=== PATIENT | male | born 1975 | race Caucasian/White ===

== ENCOUNTER 2016-10-18 12:38 | Emergency (ER) | payer SELFPAY ==
[~2016-10-18] VITALS: Ht 175.3 cm; Wt 108.2 kg
[~2016-10-18 12:38] MED LIST: IBUP-1547 PO; [UNRECOGNIZED DRUG - REMARK]
--- OUTSIDE RECORDS SUMMARY | 2016-10-18 12:41 | XMS REPORT | Continuity of Care Document ---
Author Author [facility] Organization [facility] Address Unknown Phone Unavailable Support Name Relationship Address Phone AMARILYS CORRIGAN MD Caregiver [address] [place] [address] [place] [phone] JOHNNY DYKES Next Of Kin [address] [place] [address] Insurance Providers Payer Name Policy Number Subscriber Name Relationship Self Pay Winsome Sharpe 19 Self Problems Medical Problems Problem Onset Date Status Sternum and Rib Pain Unknown Active RIGHT RIB PAIN Unknown Active Pain due to dental caries Unknown Active Dental abscess Unknown Active Pain due to dental caries Unknown Active Sinusitis Unknown Active Sinusitis Unknown Active Chest pain Unknown Active Chest pain Unknown Active Medications Medication Dose Route Sig Days/Qty Instructions Order Date Discontinued Date Status [None] 12/16/09 10/02/11 Discontinued Miscellaneous Information 03/20/12 06/03/13 Discontinued Amoxicillin Trihydrate 500 Mg PO TWICE A DAY 03/24/13 06/03/13 Discontinued Social History Social History Problem Response Recorded Date/Time Hx Substance Use No 08/18/2014 9:00am Hx Alcohol Use No 08/18/2014 9:00am Tobacco Usage smoke 04/08/2014 12:55pm Query Response Start Date Stop Date Smoking Status Heavy Smoker Hospital Discharge Instructions No hospital discharge instructions. Plan of Care No plan of care. Functional Status Query Response Date Recorded Physical Hygiene Self August 18, 2014 9:00am Disabilities None August 18, 2014 9:00am Devices Used None August 18, 2014 9:00am Dressing Self August 18, 2014 9:00am Ambulation Self August 18, 2014 9:00am Diet Self August 18, 2014 9:00am Mental Status Alert August 18, 2014 9:49am Disabilities None August 18, 2014 9:00am Devices Used None August 18, 2014 9:00am Physical Hygiene Self August 18, 2014 9:00am Dressing Self August 18, 2014 9:00am Ambulation Self August 18, 2014 9:00am Diet Self August 18, 2014 9:00am Allergies, Adverse Reactions, Alerts Allergen Type Severity Reaction Status Last Updated Erythromycin base Allergy Unknown Active 08/18/14 Immunizations Name Given Type Hx Influenza Vaccination No Historical Hx Influenza Vaccination No Historical Vital Signs Acute Vital Signs Vital Response Date/Time Temperature (Fahrenheit) 97.1 deg F (96.8 - 99.1) Temperature (Calculated Celsius) 36.54593 degrees C (36.0 - 37.3) Pulse Rate (adult) 71 bpm (60 - 100) Respiratory Rate 18 breaths/min (10 - 20) O2 Sat by Pulse Oximetry 99 % (90 - 100) Blood Pressure 135/79 mm Hg Height 5 ft 9 in Weight 245 lb Body Mass Index 36.0 kg/m^2 Results Test Source Date Result Interp. Ref. Range Comments Activated Partial Thromboplast Time August 18, 2014 8:50am 31.4 SEC N 24-36 Ordering r/o VTE Yes Alanine Aminotransferase (ALT/SGPT) August 18, 2014 8:50am 33 U/L N 21- 72 Albumin August 18, 2014 8:50am 4.3 G/DL N 3.5-5.0 Albumin/Globulin Ratio August 18, 2014 8:50am 1.3 RATIO N 1.1-2.2 Alkaline Phosphatase August 18, 2014 8:50am 54 U/L N 38-126 Amylase Level April 21, 2010 8:40am < 30 U/L L 30-110 Anion Gap August 18, 2014 8:50am 9 MEQ/L N 5-15 Aspartate Amino Transf (AST/SGOT) August 18, 2014 8:50am 26 U/L N 17- 59 B-Type Natriuretic Peptide December 16, 2009 12:05pm 34 PG/ML N 15-100 BUN/Creatinine Ratio August 18, 2014 8:50am 24 RATIO N 6-26 Basophils # (Auto) August 18, 2014 8:50am 0.0 T/MM3 N 0-0.2 Basophils (%) (Auto) August 18, 2014 8:50am 0.3 % N 0-2 Blood Urea Nitrogen August 18, 2014 8:50am 19.0 MG/DL N 9-20 Calcium Level August 18, 2014 8:50am 8.8 MG/DL N 8.4-10.2 Calculated Osmolality August 18, 2014 8:50am 271 MOSM/KG N 261-280 Carbon Dioxide Level August 18, 2014 8:50am 26 MEQ/L N 22-30 Chemistry Specimen Hemolysis August 18, 2014 8:50am 59 H 0-25 0-25: No Hemolysis.26-70: Slight Hemolysis - can falsely elevate K and Urine Protein. 71-285: Moderate Hemolysis - can falsely elevate K, Troponin I, CA 19-9, PTH, CSF GLucose, and Urine Protein, and can falsely decrease Phenytoin. 286-999: Gross Hemolysis - can falsely elevate K, Troponin I, CA 19-9, PTH, CSF Glucose, and Urine Protine, and can falsely decrease Phenytoin. Recommend specimen recollection. Chloride Level August 18, 2014 8:50am 105 MEQ/L N 98-107 Cholesterol Level December 25, 2007 3:50pm 169 MG/DL N 120-200 Cholesterol/HDL Ratio December 25, 2007 3:50pm 2.0 RATIO N 0-5.0 Conjugated Bilirubin August 12, 2012 1:15pm 0.00 MG/DL N 0.00-0.30 Creatinine August 18, 2014 8:50am 0.8 MG/DL N 0.8-1.5 D-Dimer August 18, 2014 8:50am < 150 NG/ML 0-230 <230 NG/ML D-DU= PRESUMPTIVE NEGATIVE FOR PE OR DVT>230 NG/ML D-DU=ADDITIONAL EVAL FOR PE OR DVT RECOMMENDED Eosinophils # (Auto) August 18, 2014 8:50am 0.2 T/MM3 N 0-0.5 Eosinophils (%) (Auto) August 18, 2014 8:50am 2.2 % N 0-4 Globulin August 18, 2014 8:50am 3.2 G/DL N 2.4-3.6 Glomerular Filtration Rate Calc August 18, 2014 8:50am 109 - Glucose Level August 18, 2014 8:50am 90 MG/DL N 75-110 HDL Cholesterol Direct December 25, 2007 3:50pm 72 MG/DL H 40-60 Hematocrit August 18, 2014 8:50am 44.5 % N 41-53 Hemoglobin August 18, 2014 8:50am 15.0 GM/DL N 13.5-17.5 Icterus Index August 18, 2014 8:50am < 2 0-7 Immature Granulocyte # (Auto) August 18, 2014 8:50am 0.01 T/MM3 N 0.00- 0.03 Immature Granulocyte % (Auto) August 18, 2014 8:50am 0.1 % N 0.0-0.5 LDL Cholesterol, Calculated December 25, 2007 3:50pm 77.26925 - Lipase August 12, 2012 1:15pm 36 U/L N 23-300 Lymphocytes # (Auto) August 18, 2014 8:50am 1.7 T/MM3 N 1-4.8 Lymphocytes # (Manual) July 19, 2009 6:00pm 2.7 T/MM3 N 1-4.8 Lymphocytes % (Manual) July 19, 2009 6:00pm 30.0 % N 23-45 Lymphocytes (%) (Auto) August 18, 2014 8:50am 22.4 % L 23-45 Magnesium Level August 18, 2014 8:50am 2.0 MG/DL N 1.6-2.3 Mean Corpuscular Hemoglobin August 18, 2014 8:50am 31.9 UUG N 26-34 Mean Corpuscular Hemoglobin Concent August 18, 2014 8:50am 33.7 GM/DL N 31-37 Mean Corpuscular Volume August 18, 2014 8:50am 94.7 UM3 N 80-100 Mean Platelet Volume August 18, 2014 8:50am 10.6 UM3 N 9.4-12.4 Monocytes # (Auto) August 18, 2014 8:50am 0.6 T/MM3 N 0-0.8 Monocytes # (Manual) July 19, 2009 6:00pm 0.6 T/MM3 N 0-0.8 Monocytes % (Manual) July 19, 2009 6:00pm 7.0 % N 0-9.0 Monocytes (%) (Auto) August 18, 2014 8:50am 7.7 % N 0-9.0 NT-Gaz-Y-Type Natriuretic Peptide August 18, 2014 8:50am 69 PG/ML N 0- 175 Rule in cut points: <50 years old=450; 50-75 years old=900; >75 years old=1800; When utilizing ProBNP rule-in cut points, adjustment for impaired renal function is typically not required. Neutrophils # (Auto) August 18, 2014 8:50am 5.0 T/MM3 N 1.8-7.7 Neutrophils # (Manual) July 19, 2009 6:00pm 5.6 T/MM3 N 1.8-7.7 Neutrophils % (Manual) July 19, 2009 6:00pm 63.0 % N 33-66 Neutrophils (%) (Auto) August 18, 2014 8:50am 67.3 % H 33-66 Platelet Count August 18, 2014 8:50am 178 T/MM3 N 130-400 Potassium Level August 18, 2014 8:50am 4.2 MEQ/L N 3.6-5 Prothromb Time International Ratio August 18, 2014 8:50am 0.97 N 0.81- 1.09 THERAPUTIC RANGE=2.00-3.00 FOR ANTI-THROMBOSIS THERAPUTIC RANGE=2.50- 3.50 FOR IMPLANTED VALVE RDW Standard Deviation August 18, 2014 8:50am 41.9 FL N 36.9-50.2 Red Blood Count August 18, 2014 8:50am 4.70 M/MM3 N 4.50-5.90 Sodium Level August 18, 2014 8:50am 140 MEQ/L N 134-144 Tests Not Done July 19, 2009 5:36pm Not done - Has specimen been collected/obtained? Y Thyroid Stimulating Hormone (TSH) December 25, 2007 3:50pm 1.66 MIU/ML N 0.47 -4.68 Total Bilirubin August 18, 2014 8:50am 0.50 MG/DL N 0.20-1.30 Total Protein August 18, 2014 8:50am 7.5 G/DL N 6.3-8.2 Triglycerides Level December 25, 2007 3:50pm 139 MG/DL N 0-150 Troponin I August 18, 2014 8:50am 0.015 ng/ml N 0-0.12 Turbidity August 18, 2014 8:50am < 20 0-20 Unconjugated Bilirubin August 12, 2012 1:15pm 0.10 MG/DL N 0.00-1.10 Urinalysis Comment August 18, 2014 9:42am Microscopic not ind. - Has specimen been collected/obtained? Y Urine Amorphous Urates April 21, 2010 8:55am Few - Has specimen been collected/obtained? Y Urine Bilirubin August 18, 2014 9:42am Negative - Has specimen been collected/obtained? Y Urine Blood August 18, 2014 9:42am Negative - Has specimen been collected/obtained? Y Urine Collection Type August 18, 2014 9:42am Cleancatch-midstream - Has specimen been collected/obtained? Y Urine Color August 18, 2014 9:42am Yellow - Has specimen been collected/obtained? Y Urine Glucose (UA) August 18, 2014 9:42am Negative - Has specimen been collected/obtained? Y Urine Ketones August 18, 2014 9:42am Negative - Has specimen been collected/obtained? Y Urine Leukocyte Esterase August 18, 2014 9:42am Negative - Has specimen been collected/obtained? Y Urine Nitrite August 18, 2014 9:42am Negative - Has specimen been collected/obtained? Y Urine Protein August 18, 2014 9:42am Negative - Has specimen been collected/obtained? Y Urine RBC April 21, 2010 8:55am 0-1 /HPF - Has specimen been collected/obtained? Y Urine Specific [place] August 18, 2014 9:42am 1.020 - Has specimen been collected/obtained? Y Urine Squamous Epithelial Cells April 21, 2010 8:55am Few - Has specimen been collected/obtained? Y Urine Turbidity August 18, 2014 9:42am Clear - Has specimen been collected/obtained? Y Urine Urobilinogen August 18, 2014 9:42am 0.2 EU/DL - Has specimen been collected/obtained? Y Urine WBC April 21, 2010 8:55am 0-1 /HPF - Has specimen been collected/obtained? Y Urine pH August 18, 2014 9:42am 7.0 - Has specimen been collected/ obtained? Y VLDL Cholesterol December 25, 2007 3:50pm < 20 MG/DL 0-28 White Blood Count August 18, 2014 8:50am 7.4 T/MM3 N 4.5-11.0 Name: WINSOME SHARPE Unit #: [id number] : 1975 Sex: M Loc / Svc: ED DOS: 08/18/14 Signed Report #: [id number] DIAGNOSTIC IMAGING REPORT TYPE OF EXAM: CHEST 1 VIEW Dictated By: OSMAN OLIVO MD INDICATION: ITS.REASON: chest pain CHEST 1 VIEW: Comparison: August 14, 2013 FINDINGS: The lungs are clear. There is no abnormal airspace opacity, pleural effusion or pneumothorax identified. The heart size, pulmonary vasculature and mediastinum are within normal limits. No significant skeletal abnormality is seen. IMPRESSION: No acute cardiopulmonary abnormality. . Procedures No known history of procedures. Encounters Encounter Location Date/Time Registered Emergency Room [facility] 08/18/14 8:39am Recent Diagnosis
--- OUTSIDE RECORDS SUMMARY | 2016-10-18 12:41 | XMS REPORT | Continuity of Care Document ---
Author Author [facility] Organization [facility] Address Unknown Phone Unavailable Support Name Relationship Address Phone KARTHIK VAZQUEZ DO Caregiver [facility] [address] [place] [phone] ANT HARPER MD Caregiver [address] [place] [address] JOHNNY DYKES Next Of Kin [address] [place] [address] Insurance Providers Payer Name Policy Number Subscriber Name Relationship Self Pay Winsome Sharpe 19 Self Advance Directives Directive Response Recorded Date/Time Advanced Directives Type None 04/01/14 11:45pm Problems Medical Problems Problem Onset Date Status Sternum and Rib Pain Unknown Active RIGHT RIB PAIN Unknown Active Pain due to dental caries Unknown Active Dental abscess Unknown Active Pain due to dental caries Unknown Active Sinusitis Unknown Active Sinusitis Unknown Active Medications Medication Dose Route Sig Days/Qty Instructions Order Date Discontinued Date Status [None] 12/16/09 10/02/11 Discontinued Miscellaneous Information 03/20/12 06/03/13 Discontinued Amoxicillin Trihydrate 500 Mg PO TWICE A DAY 03/24/13 06/03/13 Discontinued Hydrocodone Bit/Acetaminophen 1 Tab PO EVERY 4 HOURS For PAIN 20 Qty Active Amoxicillin Trihydrate 500 Mg PO THREE TIMES A DAY 30 Qty 12/10/13 Active Amoxicillin 1 Tab PO THREE TIMES A DAY 30 Qty 04/02/14 Active Social History Social History Problem Response Recorded Date/Time Smoking Status Heavy Smoker 12/10/2013 11:55am Hx Substance Use No 04/01/2014 11:45pm Hx Alcohol Use No 04/01/2014 11:45pm Query Response Start Date Stop Date Smoking Status Current every day smoker Hospital Discharge Instructions No hospital discharge instructions. Plan of Care No plan of care. Functional Status Query Response Date Recorded Physical Hygiene Self April 01, 2014 11:45pm Disabilities None April 01, 2014 11:45pm Devices Used None April 01, 2014 11:45pm Dressing Self April 01, 2014 11:45pm Ambulation Self April 01, 2014 11:45pm Diet Self April 01, 2014 11:45pm Mental Status Alert Oriented April 02, 2014 12:20am Disabilities None April 01, 2014 11:45pm Devices Used None April 01, 2014 11:45pm Physical Hygiene Self April 01, 2014 11:45pm Dressing Self April 01, 2014 11:45pm Ambulation Self April 01, 2014 11:45pm Diet Self April 01, 2014 11:45pm Allergies, Adverse Reactions, Alerts Allergen Type Severity Reaction Status Last Updated Erythromycin base Allergy Unknown Active 04/01/14 Immunizations Name Given Type Hx Influenza Vaccination No Historical Hx Influenza Vaccination No Historical Vital Signs Acute Vital Signs Vital Response Date/Time Temperature (Fahrenheit) 97.2 deg F (96.8 - 99.1) Temperature (Calculated Celsius) 36.88382 degrees C (36.0 - 37.3) Pulse Rate (adult) 76 bpm (60 - 100) Respiratory Rate 16 breaths/min (10 - 20) O2 Sat by Pulse Oximetry 98 % (90 - 100) Blood Pressure 133/79 mm Hg Height 5 ft 9 in Weight 247 lb Body Mass Index 36.0 kg/m^2 Results Test Source Date Result Interp. Ref. Range Comments Activated Partial Thromboplast Time December 16, 2009 12:05pm 28.0 SEC N 24- 36 Alanine Aminotransferase (ALT/SGPT) March 24, 2013 9:23am 30 U/L N 21- 72 Albumin March 24, 2013 9:23am 4.0 G/DL N 3.5-5.0 Albumin/Globulin Ratio March 24, 2013 9:23am 1.5 RATIO N 1.1-2.2 Alkaline Phosphatase March 24, 2013 9:23am 63 U/L N 38-126 Amylase Level April 21, 2010 8:40am < 30 U/L L 30-110 Anion Gap March 24, 2013 9:23am 9 MEQ/L N 5-15 Aspartate Amino Transf (AST/SGOT) March 24, 2013 9:23am 21 U/L N 17-59 B-Type Natriuretic Peptide December 16, 2009 12:05pm 34 PG/ML N 15-100 BUN/Creatinine Ratio March 24, 2013 9:23am 23 RATIO N 6-26 Basophils # (Auto) March 24, 2013 9:23am 0.0 T/MM3 N 0-0.2 Basophils (%) (Auto) March 24, 2013 9:23am 0.2 % N 0-2 Blood Urea Nitrogen March 24, 2013 9:23am 18.0 MG/DL N 9-20 Calcium Level March 24, 2013 9:23am 8.6 MG/DL N 8.4-10.2 Calculated Osmolality March 24, 2013 9:23am 276 MOSM/KG N 261-280 Carbon Dioxide Level March 24, 2013 9:23am 30 MEQ/L N 22-30 Chloride Level March 24, 2013 9:23am 103 MEQ/L N 98-107 Cholesterol Level December 25, 2007 3:50pm 169 MG/DL N 120-200 Cholesterol/HDL Ratio December 25, 2007 3:50pm 2.0 RATIO N 0-5.0 Conjugated Bilirubin August 12, 2012 1:15pm 0.00 MG/DL N 0.00-0.30 Creatinine March 24, 2013 9:23am 0.8 MG/DL N 0.8-1.5 Eosinophils # (Auto) March 24, 2013 9:23am 0.2 T/MM3 N 0-0.5 Eosinophils (%) (Auto) March 24, 2013 9:23am 2.9 % N 0-4 Globulin March 24, 2013 9:23am 2.7 G/DL N 2.4-3.6 Glucose Level March 24, 2013 9:23am 118 MG/DL H 75-110 Hematocrit March 24, 2013 9:23am 42.0 % N 41-53 Hemoglobin March 24, 2013 9:23am 14.3 GM/DL N 13.5-17.5 LDL Cholesterol, Calculated December 25, 2007 3:50pm 77.15392 - Lipase August 12, 2012 1:15pm 36 U/L N 23-300 Lymphocytes # (Auto) March 24, 2013 9:23am 1.5 T/MM3 N 1-4.8 Lymphocytes # (Manual) July 19, 2009 6:00pm 2.7 T/MM3 N 1-4.8 Lymphocytes % (Manual) July 19, 2009 6:00pm 30.0 % N 23-45 Lymphocytes (%) (Auto) March 24, 2013 9:23am 23.6 % N 23-45 Mean Corpuscular Hemoglobin March 24, 2013 9:23am 32.3 UUG N 26-34 Mean Corpuscular Hemoglobin Concent March 24, 2013 9:23am 34.0 GM/DL N 31-37 Mean Corpuscular Volume March 24, 2013 9:23am 94.8 UM3 N 80-100 Mean Platelet Volume March 24, 2013 9:23am 10.5 UM3 N 9.4-12.4 Monocytes # (Auto) March 24, 2013 9:23am 0.4 T/MM3 N 0-0.8 Monocytes # (Manual) July 19, 2009 6:00pm 0.6 T/MM3 N 0-0.8 Monocytes % (Manual) July 19, 2009 6:00pm 7.0 % N 0-9.0 Monocytes (%) (Auto) March 24, 2013 9:23am 6.6 % N 0-9.0 Neutrophils # (Auto) March 24, 2013 9:23am 4.3 T/MM3 N 1.8-7.7 Neutrophils # (Manual) July 19, 2009 6:00pm 5.6 T/MM3 N 1.8-7.7 Neutrophils % (Manual) July 19, 2009 6:00pm 63.0 % N 33-66 Neutrophils (%) (Auto) March 24, 2013 9:23am 66.5 % H 33-66 Platelet Count March 24, 2013 9:23am 169 T/MM3 N 130-400 Potassium Level March 24, 2013 9:23am 4.0 MEQ/L N 3.6-5 Prothromb Time International Ratio December 16, 2009 12:05pm 1.07 N 0.88- 1.13 THERAPUTIC RANGE=2.00-3.00 FOR ANTI-THROMBOSIS THERAPUTIC RANGE=2.50- 3.50 FOR IMPLANTED VALVE RDW Standard Deviation March 24, 2013 9:23am 41.6 FL N 36.9-50.2 Red Blood Count March 24, 2013 9:23am 4.43 M/MM3 L 4.50-5.90 Sodium Level March 24, 2013 9:23am 142 MEQ/L N 134-144 Tests Not Done July 19, 2009 5:36pm Not done - Has specimen been collected/obtained? Y Thyroid Stimulating Hormone (TSH) December 25, 2007 3:50pm 1.66 MIU/ML N 0.47 -4.68 Total Bilirubin March 24, 2013 9:23am 0.50 MG/DL N 0.20-1.30 Total Protein March 24, 2013 9:23am 6.7 G/DL N 6.3-8.2 Triglycerides Level December 25, 2007 3:50pm 139 MG/DL N 0-150 Troponin I March 24, 2013 9:23am < 0.012 ng/ml 0-0.12 Unconjugated Bilirubin August 12, 2012 1:15pm 0.10 MG/DL N 0.00-1.10 Urine Amorphous Urates April 21, 2010 8:55am Few - Has specimen been collected/obtained? Y Urine Bilirubin August 12, 2012 12:59pm Negative - Has specimen been collected/obtained? Y Urine Blood August 12, 2012 12:59pm Negative - Has specimen been collected/obtained? Y Urine Collection Type August 12, 2012 12:59pm Voided - Has specimen been collected/obtained? Y Urine Color August 12, 2012 12:59pm Yellow - Has specimen been collected/obtained? Y Urine Glucose (UA) August 12, 2012 12:59pm Negative - Has specimen been collected/obtained? Y Urine Ketones August 12, 2012 12:59pm Negative - Has specimen been collected/obtained? Y Urine Leukocyte Esterase August 12, 2012 12:59pm Negative - Has specimen been collected/obtained? Y Urine Nitrite August 12, 2012 12:59pm Negative - Has specimen been collected/obtained? Y Urine Protein August 12, 2012 12:59pm Negative - Has specimen been collected/obtained? Y Urine RBC April 21, 2010 8:55am 0-1 /HPF - Has specimen been collected/obtained? Y Urine Specific [place] August 12, 2012 12:59pm 1.015 - Has specimen been collected/obtained? Y Urine Squamous Epithelial Cells April 21, 2010 8:55am Few - Has specimen been collected/obtained? Y Urine Turbidity August 12, 2012 12:59pm Clear - Has specimen been collected/obtained? Y Urine Urobilinogen August 12, 2012 12:59pm Normal EU/DL - Has specimen been collected/obtained? Y Urine WBC April 21, 2010 8:55am 0-1 /HPF - Has specimen been collected/obtained? Y Urine pH August 12, 2012 12:59pm 7.0 - Has specimen been collected/ obtained? Y VLDL Cholesterol December 25, 2007 3:50pm < 20 MG/DL 0-28 White Blood Count March 24, 2013 9:23am 6.5 T/MM3 N 4.5-11.0 Urinalysis Comment August 12, 2012 12:59pm Microscopic not ind. - Has specimen been collected/obtained? Y HDL Cholesterol Direct December 25, 2007 3:50pm 72 MG/DL H 40-60 Glomerular Filtration Rate Calc March 24, 2013 9:23am 109 - Immature Granulocyte # (Auto) March 24, 2013 9:23am 0.01 T/MM3 N 0.00- 0.03 Immature Granulocyte % (Auto) March 24, 2013 9:23am 0.2 % N 0.0-0.5 Procedures No known history of procedures. Encounters Encounter Location Date/Time Departed Emergency Room [facility] 04/01/14 10:27pm Recent Diagnosis
--- OUTSIDE RECORDS SUMMARY | 2016-10-18 12:41 | XMS REPORT | Continuity of Care Document ---
Author Author [facility] Organization [facility] Address Unknown Phone Unavailable Support Name Relationship Address Phone KARTHIK VAZQUEZ DO Caregiver [address] [place] [address] Unavailable JOHNNY DYKES Next Of Kin [address] [phone] Insurance Providers Guarantor Winsome Sharpe Address [address] [place] [address] Email [id number] Payer Self Pay Subscriber's Name Winsome Sharpe Relationship 18 Self Advance Directives Directive Response Recorded Date/Time Advanced Directives Type None 08/21/16 10:15am Chief Complaint and Reason for Visit Chief Complaint Lower Extremity Pain Reason for Visit Left ankle pain Left foot pain Problems Active Problems Medical Problem Onset Date Status Back pain Unknown Chronic Cellulitis of foot, right Unknown Acute Chest pain Unknown Acute Chest pain Unknown Acute Dental abscess Unknown Acute GERD (gastroesophageal reflux disease) Unknown Acute Gastritis and duodenitis Unknown Acute Influenza B Unknown Acute Left ankle pain Unknown Acute Left foot pain Unknown Acute Pain due to dental caries Unknown Acute Pain due to dental caries Unknown Acute Puncture wound of foot, right Unknown Acute RIGHT RIB PAIN Unknown Acute Sinusitis Unknown Acute Sinusitis Unknown Acute Sprain of low back Unknown Acute Sternum and Rib Pain Unknown Acute Tetanus toxoid vaccination administered at current visit Unknown Acute West Nile fever meningitis ~2006 Past Problems Medical Problem Onset Date Inguinal hernia of left side without obstruction or gangrene Unknown Left inguinal hernia Unknown Patient left without being seen Unknown Medications Current Home Medications Medication Dose Units Route Directions Days Qty Instructions Start Date Ibuprofen 800 Mg Tablet 1 Tab Oral Every 6 Hours as needed for Pain 30 Tablet 08/21/16 No Home Medications. 08/21/16 Past Home Medications Medication Directions Ordered Status Amoxicillin Trihydrate (Amoxicillin) 500 Mg Capsule, 500 Mg Oral Twice A Day 03/24/13 Discontinued Miscellaneous Information (No Known Medications) Misc, 03/20/12 Discontinued None , 12/16/09 Discontinued Social History Social History Problem Response Recorded Date/Time Onset Date Status Chewing Tobacco Status No 08/21/2016 10:19am Not Applicable Not Applicable Hx Substance Use No 08/21/2016 10:19am Not Applicable Not Applicable Hx Alcohol Use Y OCCASIONAL 08/21/2016 10:19am Not Applicable Not Applicable Tobacco Usage smoke 04/08/2014 12:55pm Not Applicable Not Applicable Query Response Start Date Stop Date Smoking Status Heavy Smoker Hospital Discharge Instructions No hospital discharge instructions. Plan of Care Discharge Date 08/21/16 11:30am Disposition 01 DISCHARGED HOME, SELF-CARE Condition at Discharge Stable Instructions/Education Provided Leg Pain (ED) Forms Provided Return to Work/School Permit Prescriptions See Medication Section Referrals [facility] Note: 1-2 days for follow up Care Plan and Goals Physician Care Plan Problem: 1. Left ankle and foot pain Goal: 1. Follow up with primary care provider in 1-2 days 2. Motrin or Tylenol for pain 3. Return to the ER as needed Instructions: 1. Take medications and follow care plan as discussed/written Functional Status No functional status results. Allergies, Adverse Reactions, Alerts Allergen Type Severity Reaction Status Last Updated Erythromycin base Allergy Unknown Active 08/21/16 Immunizations Query Response on File Recorded Date/Time Hx Influenza Vaccination No 08/18/14 9:00am Hx Influenza Vaccination No 08/18/14 9:00am Influenza Vaccine Hx NO 08/21/16 10:19am Tetanus Diptheria Vaccine History UNKNOWN 08/21/16 10:19am Tdap Vaccine Hx UNKNOWN - SKIN INTACT 08/17/16 9:50am Vital Signs Acute Vital Signs Vital Response Date/Time Temperature (Fahrenheit) 98.2 deg F (96.8 - 99.1) 08/21/2016 10:15am Temperature (Calculated Celsius) 36.03881 degrees C (36.0 - 37.3) 08/21/2016 10:15am Pulse Rate (adult) 72 bpm (60 - 100) 08/21/2016 11:31am Respiratory Rate 16 breaths/min (10 - 20) 08/21/2016 11:31am O2 Sat by Pulse Oximetry 98 % (90 - 100) 08/21/2016 11:31am Blood Pressure 115/68 mm Hg 08/21/2016 11:31am Height (Feet) 5 feet 08/21/2016 10:15am Height (Inches) 9.00 inches 08/21/2016 10:15am Weight (Kilograms) 110.500 kg 08/21/2016 10:15am Body Mass Index (BMI) 35.0 08/21/2016 10:15am Results Name: WINSOME SHARPE Unit #: [id number] : 1975 Sex: M Admit Date: Loc / Svc: ED Discharge Date: DIAGNOSTIC IMAGING REPORT Report #: [id number] [facility] [place] Indication: ITS.REASON: left foot pain PROCEDURE: FOOT LEFT 3 VIEWS: Encounter: Initial Comparison: None Findings: There is no acute fracture, dislocation or malalignment identified. Subtalar and Lisfranc joints appear normal. Mild degenerative changes of the first metatarsophalangeal joint. Impression: No acute osseous abnormality. . Procedures No known history of procedures. Encounters Encounter Location Arrival/Admit Date Discharge/Depart Date Attending Provider Registered Emergency Room [facility] 08/21/16 10:13am KARTHIK VAZQUEZ DO Departed Emergency Room [facility] 08/17/16 9:38am 08/17/16 10: 28am SANTO BROOKS MD Departed Emergency Room [facility] 06/01/16 10:33am 06/01/16 11: 24am TAMERA DIAS DO Recent Diagnosis
[2016-10-18 12:45] VITALS: Ht 175.3 cm; Wt 108.2 kg
[2016-10-18] MEDS ORDERED: IBUP-1724 PO (12:45)
--- NOTE | 2016-10-18 13:03 | NUR ---
DR VAZQUEZ IN ROOM WITH PT
--- OUTSIDE RECORDS SUMMARY | 2016-10-18 13:05 | XMS REPORT | Continuity of Care Document ---
Author Author [facility] Organization [facility] Address Unknown Phone Unavailable Support Name Relationship Address Phone AMARILYS CORRIGAN MD Caregiver [address] [place] [address] [place] [phone] JOHNNY DYKES Next Of Kin [address] [place] [address] Insurance Providers Payer Name Policy Number Subscriber [...] F (96.8 - 99.1) Temperature (Calculated Celsius) 36.86624 degrees C (36.0 - 37.3) Pulse Rate [...] LDL Cholesterol, Calculated December 25, 2007 3:50pm 77.76548 - Lipase August 12, 2012 1:15pm 36 [...] 18, 2014 8:50am 7.7 % N 0-9.0 WC-Spc-J-Type Natriuretic Peptide August 18, 2014 8:50am 69 [...] Has specimen been collected/obtained? Y Urine Specific Mcleod August 18, 2014 9:42am 1.020 - Has [...] N 4.5-11.0 Name: WINSOME SHARPE Unit #: [id number] : 1975 Sex: M Loc / Svc: ED DOS: 08/18/14 Signed Report #: [id number] DIAGNOSTIC IMAGING REPORT TYPE OF EXAM: CHEST [...] Encounters Encounter Location Date/Time Registered Emergency Room [facility] 08/18/14 8:39am Recent Diagnosis
--- OUTSIDE RECORDS SUMMARY | 2016-10-18 13:05 | XMS REPORT | Continuity of Care Document ---
Author Author [facility] Organization [facility] Address Unknown Phone Unavailable Support Name Relationship Address Phone KARTHIK VAZQUEZ DO Caregiver [facility] [address] [place] [phone] ANT HARPER MD Caregiver [address] [place] [address] JOHNNY DYKES Next Of Kin [address] [place] [address] Insurance Providers Payer Name Policy Number Subscriber [...] F (96.8 - 99.1) Temperature (Calculated Celsius) 36.22287 degrees C (36.0 - 37.3) Pulse Rate [...] LDL Cholesterol, Calculated December 25, 2007 3:50pm 77.23259 - Lipase August 12, 2012 1:15pm 36 [...] Has specimen been collected/obtained? Y Urine Specific [place] August 12, 2012 12:59pm 1.015 - Has [...] Encounters Encounter Location Date/Time Departed Emergency Room [facility] 04/01/14 10:27pm Recent Diagnosis
[2016-10-18] MEDS ORDERED: KETOROLAC 30mg/ml INJECTION IV ONE (13:15)
[2016-10-18] MEDS ORDERED: NORMAL SALINE 1,000 ML IV ONE (13:15)
[2016-10-18 13:37] LABS: BASOPHILS % (AUTO) 0.2 % (0-2); EOSINOPHILS # (AUTO) 0.1 T/MM3 (0-0.5); HCT - HEMATOCRIT 44.7 % (41-53); HGB - HEMOGLOBIN 15.1 GM/DL (13.5-17.5); LYMPHOCYTES # (AUTO) 1.7 T/MM3 (1-4.8); LYMPHOCYTES % (AUTO) 28.5 % (23-45); MEAN CORPUSCULAR HGB 32.2 UUG (26-34); MEAN CORPUSCULAR HGB CONC(MCHC 33.8 GM/DL (31-37); MEAN CORPUSCULAR VOLUME 95.3 UM3 (80-100); MEAN PLATELET VOLUME 10.2 UM3 (9.4-12.4); MONOCYTES # (AUTO) 0.4 T/MM3 (0-0.8); MONOCYTES % (AUTO) 6.3 % (0-9.0); NEUTROPHILS #(AUTO)-ABSOLUTE 3.8 T/MM3 (1.8-7.7); RED BLOOD COUNT 4.69 M/MM3 (4.50-5.90); WBC - WHITE BLOOD COUNT 6.1 T/MM3 (4.5-11.0)
[2016-10-18] MEDS ORDERED: NORMAL SALINE 100 ML ONE (13:37)
[2016-10-18] MEDS ORDERED: SALINE FLUSH 10ml SYRINGE ONE (13:37)
[2016-10-18] MEDS ORDERED: IOHEXOL 300 MG/ML 100ml INJECTION ONE (13:37)
[2016-10-18 13:45] LABS: ALBUMIN 4.1 G/DL (3.5-5.0); ALBUMIN/GLOBULIN RATIO 1.2 RATIO (1.1-2.2); ALKALINE PHOSPHATASE 68 U/L (38-126); ALT (SGPT) 29 U/L (21-72); ANION GAP 5 MEQ/L (5-15); AST (SGOT) 19 U/L (17-59); BUN/CREATININE RATIO 13 RATIO (6-26); CALCIUM 9.2 MG/DL (8.4-10.2); CHLORIDE 105 MEQ/L (98-107); CO2 - CARBON DIOXIDE 31 MEQ/L (22-30); CREATININE 0.8 MG/DL (0.8-1.5); GLOMERULAR FILTRATION RATE 107; GLUCOSE 94 MG/DL (75-110); POTASSIUM 5.1 MEQ/L (3.6-5); SODIUM 141 MEQ/L (134-144); TOTAL PROTEIN 7.4 G/DL (6.3-8.2)
--- NOTE | 2016-10-18 13:47 | NUR ---
TO CT PER CART
--- NOTE | 2016-10-18 14:01 | NUR ---
RETURNED FROM CT
[2016-10-18 14:04] LABS: LIPASE 34 U/L (23-300)
--- NOTE | 2016-10-18 14:05 | NUR ---
STATUS WATCHING TV. VS STABLE. PT SAYS PAIN IS STILL BURNING AT 5/10
--- NOTE | 2016-10-18 14:13 | DI ---
Indication: ITS.REASON: LLQ pain / Questionable Left Inguinal Hernia PROCEDURE: CT ABD/PELVIS W/CONTRAST ONLY: Encounter: Initial Comparison: None Technique: Axial CT images were performed through the abdomen and pelvis after the administration of intravenous contrast. Coronal and sagittal two-dimensional reformats. Automated Exposure Control and Iterative Reconstruction dose reducing techniques were utilized. Contrast: Omnipaque 300 100 mL FINDINGS: Abdomen: The lung bases are clear. There is no evidence of pleural effusion. The liver is homogeneous in appearance without evidence of enhancing lesion or mass. There is no intra or extrahepatic biliary ductal dilatation. The spleen, pancreas, bilateral adrenals and kidneys are within normal limits. The visualized loops of small and large bowel within the abdomen are unremarkable. There is no free fluid or intra-abdominal mass seen. No aggressive lytic or blastic bony lesions are noted. Appendix is normal. No ventral hernia seen. Pelvis: The visualized loops of small and large bowel within the pelvis are unremarkable. There is no free pelvic fluid. There is no inguinal or pelvic lymphadenopathy. No gross lytic or blastic bony lesions are identified. No inguinal hernia seen. Mild degenerative disk disease at L5-S1. IMPRESSION: No acute disease process seen. .
[2016-10-18] MEDS ORDERED: IBUP-1547 PO (14:20)
--- NOTE | 2016-10-18 14:21 | ERPDOC ---
Departure Disposition Decision Date: Oct 18, 2016 Disposition Decision Time: 14:18 Disposition: 01 DISCHARGED HOME, SELF-CARE Impression Impression Impression: Primary Impression: LLQ abdominal pain Severity: Mild Condition: Improved Seen By: Physician only Referrals: NIKKI ANN MD Call for appointment Patient Instructions: Abdominal Pain (ED), Inguinal Hernia (ED) Problems/Meds/Labs Reviewed?: Yes Medications reviewed and manag: Yes Follow up care ordered?: Yes Mental Status: Alert, Oriented Scripts Ibuprofen (Ibuprofen) 800 Mg Tablet 1 TAB PO Q6-8H Y for PAIN, #20 TAB Prov: KARTHIK VAZQUEZ 10/18/16 HPI - Abdominal Pain General Chief Complaint: Abdominal Pain Stated Complaint: L LOWER ABD PAIN Time Seen by Provider: 13:00 Source: patient (Patient presents to the Left Inguinal area, reporting history of hernia to this area. No hernia detected on examination) History/Exam Limitations: no limitations HPI - Abdominal Pain Occurred At: home Onset: Changing over time Duration: other Pain Scale: Now & Worst: 4/10 Quality: burning Location: other (Left Ingunal area) Radiation: no radiation Activities at Onset: none Modifying Factors: WORSE WITH: palpation Associated Symptoms: other, DENIES: back pain, chest pain, diaphoresis, fatigue , fever/chills, headache, heartburn, nausea/vomiting, rash, shortness of breath , swelling/mass in abdomen, syncope, weakness Hx of Similar Symptoms: Yes Allergies: Coded Allergies: erythromycin base (Verified Allergy, Unknown, 08/21/16) Past History Patient Surgical History tonsillectomy pyloric stenosis Left knee arthroscopy Past Medical History Pt denies signifigant PMH ENMT: dental problems, sinusitis Hx Echocardiogram: No GI: GERD Musculoskeletal: back pain Surgical History General: tonsils Joint: knee Family History Family PMH: FOUND: [place], diabetes Vaccines Hx Influenza Vaccination: No Social History Does patient use chewing tobac: No # of Packs/Tins per Day: 1.5 Second Hand Exposure: No Substance Use Type: does not use Alcohol Intake: none Marital Status: Single Sexuality: female partner Housing: house Household Members: significant other Service: No Current Occupational Status: employed Occupational Hazard: No Advance Directives: Yes Full Code Record Review Pertinent history updated: Yes Review of Systems Constitutional Constitutional: DENIES: chills, fever Eyes Lids/Accessories: DENIES: erythema, swelling ENMT Ears: DENIES: erythema, pain Balance: DENIES: ataxia, vertigo Sinuses: DENIES: congestion, rhinorrhea Mouth/Throat: DENIES: sore throat Cardiovascular Cardiac: DENIES: chest pain, dyspnea on exertion, orthopnea Rhythm/Rate: DENIES: tachycardia Pulmonary Respiratory: DENIES: cough, dyspnea, sputum GI Upper Abdomen: DENIES: nausea, pain, vomiting Lower Abdomen: pain, see HPI, DENIES: constipation, diarrhea General: DENIES: burning, dysuria, frequency, pain, urgency Musculoskeletal General: DENIES: cramps, pain, weakness Integumentary Skin: DENIES: color change, itching, rash Neurological General: DENIES: ataxia, change in strength, headache, numbness, poor coordination, seizures, syncope, vertigo, weakness Psychiatric Psychiatric: DENIES: anxiety, depression, nervousness Hematologic/Lymphatic Hematologic/Lymphatic: DENIES: anemia Allergic/Immunological Allergic/Immunoligical: DENIES: sneezing All other Systems All Other Systems: Reviewed and Negative Physical Exam General General Nourishment: well nourished, well developed, appears stated age, no acute distress, adult General Body Habitus: well groomed Vitals and Pain First Documented Vital Signs Date Time Temp Pulse Resp B/P Pulse Ox O2 Delivery O2 Flow Rate FiO2 10/18/16 12:45 98.2 83 16 134/102 100 Room Air Weight: Kilograms: 108.200 Height (feet): 5 Height (inches): 9.00 Triage Pain Scale: Eyes (brief) Eyes Brief: found: EOMI, PERRL ENMT (brief) ENMT Brief: FOUND: TM clear, TM good light reflex, mucosa moist, NOT FOUND: pharnyx erythema Neck (brief) Neck: FOUND: trachea midline, NOT FOUND: adenopathy, tenderness, tracheal deviation Respiratory (brief) Respiratory: FOUND: clear all bautista, equal bilaterally Cardiovascular (brief) Cardiac: FOUND: regular rate, regular rhythm Capillary Refill: <2 sec Pulses: all distal extremities, equal, strong Abdomen (brief) Abdominal Brief: FOUND: bowel normo active x4, soft, NOT FOUND: distended, tender (brief) Male Brief: NOT FOUND: other (No Hernia Detected on Physical examination) Lymphatic (brief) Lymphatic Brief: NOT FOUND: adenopathy Musculoskeletal (brief) Musculoskeletal Brief: NOT FOUND: spasm, tenderness Integumentary (brief) Integumentary Brief: FOUND: pink, warm Neurologic (brief) Neurological Brief: FOUND: CN w/o gross def to obs, gait w/o gross def to obs, motor-no gross deficits, sensory-no gross deficits, NOT FOUND: ataxia Psychiatric (brief) Psychiatric Brief: FOUND: alert, attentive, normal affect, oriented Differential Diagnoses Considering: Other Progress Results/Orders Orders Lab Results Medications Current ED Medications Ketorolac Tromethamine 30 mg 30 mg O ONCE IV Last administered on 10/18/16 13 :38; Start 10/18/16 at 13:15; Stop 10/18/16 at 13:16; Status DC Sodium Chloride (Normal Saline IV) 1,000 ml @ 0 mls/hr Q0M ONCE IV Last administered on 10/18/16 13:35; Start 10/18/16 at 13:15; Stop 10/18/16 at 13:16 ; Status DC Iohexol 1 bottle 1 bottle STK-MED ONCE .ROUTE ; Start 10/18/16 at 13:37; Stop at 13:38; Status DC Sodium Chloride (NS) 100 ml @ As Directed STK-MED ONCE .ROUTE ; Start 10/18/16 at 13:37; Stop 10/18/16 at 13:38; Status DC Sodium Chloride (Iv Flush) 10 ml STK-MED ONCE .ROUTE ; Start 10/18/16 at 13:37; Stop 10/18/16 at 13:38; Status DC CT CT : Reason for Exam: Abdominal Pain / Possible Left Inguinal Hernia CT: Abd/Pelvis IV contrast Interpretation: Normal, Reviewed Written Report KARTHIK VAZQUEZ DO Oct 18, 2016 14:21 Aspartate Amino Transf (AST/SGOT) 19U/L Alanine Aminotransferase (ALT/SGPT) 29U/L Alkaline Phosphatase 68U/L Total Protein 7.4G/DL Albumin 4.1G/DL Globulin 3.3G/DL Albumin/Globulin Ratio 1.2RATIO Lipase 34U/L Chemistry Specimen Hemolysis < 15 Urine Collection Type Cleancatch-midstream Urine Color Yellow Urine Turbidity Clear Urine pH 7.0 Urine Specific Frederic 1.010 Urine Protein Negative Urine Glucose (UA) Negative Urine Ketones Negative Urine Blood Negative Urine Nitrite Negative Urine Bilirubin Negative Urine Urobilinogen 0.2EU/DL Urine Leukocyte Esterase Negative Urinalysis Comment Microscopic not ind. Medications Current ED Medications Ketorolac Tromethamine 30 mg 30 mg O ONCE IV Last administered on 10/18/16 13 :38; Start 10/18/16 at 13:15; Stop 10/18/16 at 13:16; Status DC Sodium Chloride (Normal Saline IV) 1,000 ml @ 0 mls/hr Q0M ONCE IV Last administered on 10/18/16 13:35; Start 10/18/16 at 13:15; Stop 10/18/16 at 13:16 ; Status DC Iohexol 1 bottle 1 bottle STK-MED ONCE .ROUTE ; Start 10/18/16 at 13:37; Stop at 13:38; Status DC Sodium Chloride (NS) 100 ml @ As Directed STK-MED ONCE .ROUTE ; Start 10/18/16 at 13:37; Stop 10/18/16 at 13:38; Status DC Sodium Chloride (Iv Flush) 10 ml STK-MED ONCE .ROUTE ; Start 10/18/16 at 13:37; Stop 10/18/16 at 13:38; Status DC KARTHIK VAZQUEZ DO Oct 18, 2016 14:21
[2016-10-18 14:42] LABS: BLOOD, URINE NEGATIVE (NEGATIVE); COLOR,URINE YELLOW (YELLOW); LEUKOCYTE ESTERASE ,URINE NEGATIVE (NEGATIVE); NITRITE,URINE NEGATIVE (NEGATIVE); UROBILINOGEN,URINE 0.2 EU/DL (NORMAL)
[2016-10-18 15:08] VITALS: BP 158/108; PULSE 59; RESP 16; TEMP 98.3; O2SAT 100
--- NOTE | 2016-10-18 15:08 | NUR ---
DISMISSAL INSTRUCTIONS REVIEWED. PT IS FEELING SOME BETTER. DISCHARGED
== END 2016-10-18 15:08 | disposition home or self-care (01) ==
LOC: ED 12:38
DX: R10.32 Left lower quadrant pain (principal)
CPT/HCPCS: 80053; 81003; 83690; 85025